=== PATIENT | female | born 1950 | race Caucasian/White ===

== ENCOUNTER 2016-06-22 20:14 | Observation (INO) | payer MEDICARE ==
[~2016-06-22] VITALS: Ht 162.6 cm; Wt 123.0 kg
[~2016-06-22 20:14] MED LIST: FOLI1 PO; GABA300C3 PO; HYDR200T42 PO; LEVO.025 PO; META800 PO; METH2.5 PO; METO25 PO; OMEP20TA39 PO; PERC7.5T13 PO; SERT-129 PO; WARF1TAB PO
[2016-06-22 20:20] VITALS: BP 181/79; PULSE 99; RESP 24; TEMP 98.3; O2SAT 97
[2016-06-22] MEDS ORDERED: LEVO25TA4 PO (20:36)
[2016-06-22] MEDS ORDERED: METH2.5T PO (20:36)
[2016-06-22] MEDS ORDERED: PLAQ200T PO (20:36)
[2016-06-22] MEDS ORDERED: ZOLO100T PO (20:36)
[2016-06-22] MEDS ORDERED: GABA300C5 PO (20:36)
[2016-06-22] MEDS ORDERED: FOLI1TAB4 PO (20:36)
[2016-06-22] MEDS ORDERED: METO50TA PO (20:36)
[2016-06-22] MEDS ORDERED: WARF-22 PO (20:36)
[2016-06-22] MEDS ORDERED: OMEP20TA PO (20:36)
[2016-06-22] MEDS ORDERED: BUME1TAB PO (20:38)
[2016-06-22 20:39] VITALS: RESP 18; O2SAT 98
[2016-06-22] MEDS ORDERED: SODIUM CHLORIDE 0.9% FLUSH 5 ML FLUSH IVF PRN (20:45)
--- NOTE | 2016-06-22 21:11 | PD ---
HPI Chief Complaint: Cardiac Complaint Time Seen by Provider: 20:32 Travel History International Travel<30 days: No Contact w/Intl Traveler<30days: No Traveled to known affect area: No History of Present Illness HPI 66 year-old female presents to the emergency department by EMS transport for complaint of palpitations. Patient has prior history of atrial fibrillation. Patient is recently been under the care of her primary care physician for bronchitis. Patient recently discontinued a four-day course of prednisone approximate 10 days ago. Patient is not on antibiotic and denies fever. Patient has been using albuterol neb treatments prior history of asthma and bronchitis. Patient states that she also has history of DVT for which she is prescribed Coumadin. Patient is been taking her medications as prescribed. Patient reports that yesterday she felt fairly well except congested and then this morning she awakened noticing she had swelling of her feet took a dose of Bumex still didn't feel well all day and then this evening as she was taking out her dog she noticed that she was having a racing heart. Patient attended to check her blood pressure but was unable to do so but when she looked at the blood pressure cuff or heart rate reportedly registered 160. Patient sat down felt improved heart rate decreased to 138 and when she got up again her heart rate reportedly increased to 200. Patient attempted to give her neighbor to bring her in but due to feeling poorly came in by EMS transport. Patient reportedly en route had episode of atrial fibrillation with RVR. Patient presently voices no complaint of palpitations chest pain or shortness of breath. Patient does report that intermittently she's had a funny fluttery sensation in her left neck area. Patient states with her last episode of attempting to stand she felt as if she may pass out. Patient has had no syncope. PFSH Past Medical History Narrative Medical Rheumatoid arthritis sarcoidosis hypothyroidism asthma CHF SVT atrial fibrillation DVT fibromyalgia esophageal spasm; cardiac ablation mediastinoscopy bilateral knee surgery; no tobacco use; nursing notes reviewed Arthritis: Yes (RA) Asthma: Yes Atrial Fibrillation: Yes Depression: Yes Heart Rhythm Problems: Yes (TACHYCARDIA) Cancer: Yes (SKIN) Cardiac Catheterization: Yes Cardiovascular Problems: Yes Congestive Heart Failure: Yes COPD: Yes Deep Vein Thrombosis: Yes (VENA CAVA BIRD'S NEST FILTER) Fibromyalgia: Yes Gastrointestinal Disorders: Yes (ESOPHAGUS SPASMS) GERD: Yes Hypertension: Yes Musculoskeletal: Yes (SPINAL STENOSIS, DDD) Respiratory: Yes Pneumonia: Yes Thyroid Disease: Yes Tetanus Vaccination: > 5 Years Influenza Vaccination: Yes Past Surgical History Cardiac Surgery: Yes (ABLASION) Joint Replacement: Yes (BILATERAL KNEES) Other Surgery: Yes (MEDIA STINASCOPY WITH BIOPSY) Social History Alcohol Use: Yes (OCC) Tobacco Use: No Substance Use: No Allergies-Medications (Allergen,Severity, Reaction): Coded Allergies: Arava (Unverified Allergy, Intermediate, Itching, 06/22/16) Lyrica (Unverified Allergy, Intermediate, Itching, 06/22/16) Remicade (Unverified Allergy, Intermediate, Itching, 06/22/16) Reported Meds & Prescriptions Reported Meds & Active Scripts Active Reported Bumetanide 1 Mg Tab 1 Mg PO DAILY Warfarin 10 Mg Tab 10 Mg PO DAILY Zoloft (Sertraline HCl) 100 Mg Tab 100 Mg PO HS Omeprazole 20 Mg Tab 20 Mg PO DAILY Metoprolol Tartrate 50 Mg Tab 50 Mg PO BID Methotrexate 2.5 Mg Tab 20 Mg PO Q7D Levothyroxine (Levothyroxine Sodium) 25 Mcg Tab 25 Mcg PO DAILY Plaquenil (Hydroxychloroquine Sulfate) 200 Mg Tab 200 Mg PO BID Take with food Gabapentin 300 Mg Cap 300 Mg PO BID Folate (Folic Acid) 1 Mg Tab 1 Mg PO DAILY Review of Systems Except as stated in HPI: all other systems reviewed are Neg General / Constitutional: No: Fever, Chills HENT: No: Congestion Cardiovascular: Positive: Palpitations, Tachycardia, No: Chest Pain or Discomfort, Diaphoresis Respiratory: No: Shortness of Breath Gastrointestinal: No: Nausea, Vomiting, Abdominal Pain Genitourinary: No: Flank Pain Musculoskeletal: No: Myalgias, Arthralgias Skin: No Rash Neurologic: Positive: Weakness, Dizziness, No: Syncope (near syncope), Focal Abnormalities, Coordination Problem Psychiatric: Positive: Anxiety Hematologic/Lymphatic: No: Easy Bruising Physical Exam Narrative GENERAL: Well-developed well-nourished female in acute distress no respiratory distress SKIN: Warm and dry. HEAD: Normocephalic. EYES: No scleral icterus. No injection or drainage. NECK: Supple, trachea midline. No JVD or lymphadenopathy. CARDIOVASCULAR: Regular rate and rhythm without murmurs, gallops, or rubs. RESPIRATORY: Breath sounds equal bilaterally. No accessory muscle use. GASTROINTESTINAL: Abdomen soft, non-tender, nondistended. MUSCULOSKELETAL: No cyanosis, or edema. BACK: Nontender without obvious deformity. No CVA tenderness. Data Data Last Documented VS Vital Signs Date Time Temp Pulse Resp B/P Pulse Ox O2 Delivery O2 Flow Rate FiO2 06/23/16 00:38 79 22 151/78 96 Room Air 06/22/16 20:20 98.3 Orders Electrocardiogram (06/22/16 20:32) Basic Metabolic Panel (Bmp) (06/22/16 20:32) B-Type Natriuretic Peptide (06/22/16 20:32) Ckmb (Isoenzyme) Profile (06/22/16 20:32) Complete Blood Count With Diff (06/22/16 20:32) Magnesium (Mg) (06/22/16 20:32) Prothrombin Time / Inr (Pt) (06/22/16 20:32) Act Partial Throm Time (Ptt) (06/22/16 20:32) Troponin I (06/22/16 20:32) Chest, Single Ap (06/22/16 20:32) Ecg Monitoring (06/22/16 20:32) Bilateral Bp Monitoring (06/22/16 20:32) Iv Access Insert/Monitor (06/22/16 20:32) Oximetry (06/22/16 20:32) Oxygen Administration (06/22/16 20:32) Sodium Chloride 0.9% Flush (Ns Flush) (06/22/16 20:45) CKMB (06/22/16 20:42) CKMB% (06/22/16 20:42) Nitroglycerin 2% Oint (Nitroglycerin 2% (06/22/16 23:30) Vital Signs (Adult) Q4H (06/23/16 00:27) Activity Oob With Assistance (06/23/16 00:27) Program Services Assistant / Telemetry .CONTINUOUS (06/23/16 00:27) Intake + Output MAURA.QSHIFT (06/23/16 00:27) Diet Heart Healthy (06/23/16 Breakfast) Sodium Chloride 0.9% Flush (Ns Flush) (06/23/16 00:30) Sodium Chloride 0.9% Flush (Ns Flush) (06/23/16 09:00) Basic Metabolic Panel (Bmp) (06/24/16 06:00) Complete Blood Count With Diff (06/24/16 06:00) Creatine Kinase (Cpk) (06/23/16 03:00) Creatine Kinase (Cpk) (06/23/16 09:00) Troponin I (06/23/16 03:00) Troponin I (06/23/16 09:00) Electrocardiogram (06/23/16 03:00) Electrocardiogram (06/23/16 09:00) Pt Request For Service (06/23/16 00:27) Enoxaparin Inj (Lovenox Inj) (06/23/16 00:30) Naloxone Inj (Narcan Inj) (06/23/16 00:30) Place In Observation (06/23/16 ) Admit Order (Ed Use Only) (06/23/16 ) ^ Saline Lock (06/23/16 00:46) Resp Oxygen Shaheen C Titrat 1-4 L (06/23/16 ) ^ Notify Dr: Other (06/23/16 00:46) Sodium Chloride 0.9% Flush (Ns Flush) (06/23/16 09:00) Sodium Chloride 0.9% Flush (Ns Flush) (06/23/16 01:00) Labs Laboratory Tests Test 06/22/16 20:42 White Blood Count 6.0 TH/MM3 Red Blood Count 4.42 MIL/MM3 Hemoglobin 13.3 GM/DL Hematocrit 39.3 % Mean Corpuscular Volume 88.8 FL Mean Corpuscular Hemoglobin 30.0 PG Mean Corpuscular Hemoglobin 33.8 % Concent Red Cell Distribution Width 15.1 % Platelet Count 192 TH/MM3 Mean Platelet Volume 9.1 FL Neutrophils (%) (Auto) 72.7 % Lymphocytes (%) (Auto) 9.0 % Monocytes (%) (Auto) 14.5 % Eosinophils (%) (Auto) 2.5 % Basophils (%) (Auto) 1.3 % Neutrophils # (Auto) 4.3 TH/MM3 Lymphocytes # (Auto) 0.5 TH/MM3 Monocytes # (Auto) 0.9 TH/MM3 Eosinophils # (Auto) 0.2 TH/MM3 Basophils # (Auto) 0.1 TH/MM3 CBC Comment DIFF FINAL Differential Comment Prothrombin Time 22.1 SEC Prothromb Time International 1.9 RATIO Ratio Activated Partial 31.8 SEC Thromboplast Time Sodium Level 140 MEQ/L Potassium Level 4.7 MEQ/L Chloride Level 103 MEQ/L Carbon Dioxide Level 30.2 MEQ/L Anion Gap 7 MEQ/L Blood Urea Nitrogen 13 MG/DL Creatinine 1.07 MG/DL Estimat Glomerular Filtration 52 ML/MIN Rate Random Glucose 95 MG/DL Calcium Level 8.6 MG/DL Magnesium Level 2.0 MG/DL Total Creatine Kinase 194 U/L Creatine Kinase MB 1.2 NG/ML Creatine Kinase MB % 0.6 % Troponin I LESS THAN 0.02 NG/ML B-Type Natriuretic Peptide 30 PG/ML MDM Medical Decision Making Medical Screen Exam Complete: Yes Emergency Medical Condition: Yes Medical Record Reviewed: Yes Interpretation(s) EKG: Normal sinus rhythm rate [address] elevation or injury pattern change no ectopy normal axis and intervals Last Impressions Chest X-Ray 06/22/162031 Signed Impressions: Service Date/Time: Wednesday, June 22, 2016 20:34 - CONCLUSION: Faint opacity in both lungs especially on the right. Pneumonitis versus early congestion should be considered. Mild cardiomegaly Temo Burrows MD CBC & BMP Diagram 06/22/16 20:42 Troponin I less than 0.02, not elevated Differential Diagnosis Arrhythmia, A. fib with RVR, electrolyte disturbance, ACS, myocardial infarction , anemia, Coumadin coagulopathy Narrative Course Placed on dye line operator IV access obtained IV fluids administered specimens collected and sent for resulting EKG reveals patient to be in sinus rhythm without ectopy or tachycardia Lab values pending Patient resting comfortably voicing no concerns or complaints Labs resulted; grossly within normal range; patient remains hypertensive Nitropaste 1 inch was applied to the chest wall with good blood pressure control Physician Communication Physician Communication DISCUSSED WITH dR Espinal --OBS Diagnosis Primary Impression: Rapid palpitations Admitting Information Admitting Physician Requests: Observation Brianna Crawley MD Jun 22, 2016 21:11
[2016-06-22 21:13] LABS: AUTOMATED NEUTROPHIL # 4.3 TH/MM3 (1.8-7.7); BASOPHIL # 0.1 TH/MM3 (0-0.2); BASOPHIL % 1.3 % (0.0-2.0); EOSINOPHIL # 0.2 TH/MM3 (0-0.4); EOSINOPHIL % 2.5 % (0.0-4.0); HEMATOCRIT 39.3 % (35.0-46.0); HEMO FLAGS DIFF FINAL; LYMPHOCYTE # 0.5 TH/MM3 (1.0-4.8); MEAN CELL VOLUME 88.8 FL (80.0-100.0); MEAN CORPUSCULAR HGB CONC 33.8 % (32.0-36.0); MONO % 14.5 % (0.0-8.0); NEUT % 72.7 % (16.0-70.0); PLATELET COUNT 192 TH/MM3 (150-450); RED BLOOD COUNT 4.42 MIL/MM3 (4.00-5.30); RED CELL DISTRIBUTION WIDTH 15.1 % (11.6-17.2)
[2016-06-22 21:28] LABS: APTT (PATIENT) 31.8 SEC (24.3-30.1); INTERNATIONAL NORMALIZED RATIO 1.9 RATIO; PROTHROMBIN TIME - PATIENT 22.1 SEC (9.8-11.6)
[2016-06-22 22:17] LABS: ANION GAP 7 MEQ/L (5-15); BICARBONATE 30.2 MEQ/L (21.0-32.0); BLOOD UREA NITROGEN 13 MG/DL (7-18); CHLORIDE 103 MEQ/L (98-107); CREATINE KINASE 194 U/L (26-192); GLOMERULAR FILTRATION RATE 52 ML/MIN (>89); SODIUM (NA) 140 MEQ/L (136-145)
[2016-06-22 22:22] VITALS: BP 198/91; PULSE 82; RESP 20; O2SAT 94
[2016-06-22 22:26] VITALS: BP_SYST 206; BP_DIAS 102; BP_DIAS 109; PULSE 75; RESP 22; O2SAT 96
[2016-06-22 22:39] LABS: POTASSIUM 4.7 MEQ/L (3.5-5.1)
--- NOTE | 2016-06-22 22:44 | RADRPT ---
EXAM DATE/TIME: 06/22/2016 20:34 [facility] COMPARISON: No previous studies available for comparison. INDICATIONS : Chest pain and cough. MEDICAL HISTORY : None. SURGICAL HISTORY : IVC filter. ENCOUNTER: Initial ACUITY: 3 days PAIN SCORE: 2/10 LOCATION: Left chest FINDINGS: The heart is mildly enlarged. There is faint opacity throughout both lungs especially the right lung. Central vascular engorgement is noted. Osseous structures are intact CONCLUSION: Faint opacity in both lungs especially on the right. Pneumonitis versus early congestion should be co nsidered. Mild cardiomegaly Temo Burrows MD on June 22, 2016 at 22:41 Board Certified Radiologist. This report was verified electronically.
[2016-06-22 23:30] LABS: CKMB 1.2 NG/ML (0.5-3.6)
[2016-06-22] MEDS ORDERED: NITROGLYCERIN 2% OINT 1 GM PACKET TOPICAL ONE (23:30)
[2016-06-22 23:57] VITALS: BP_SYST 162; BP_SYST 215; BP_DIAS 151; BP_DIAS 72; PULSE 71; RESP 16; O2SAT 96
[2016-06-23] VITALS (9 sets, daily range): BP systolic 137–180; BP diastolic 68–86; PULSE 53–97; RESP 16–22; TEMP 97.5–98.1; O2SAT 95–97
[2016-06-23] MEDS ORDERED: ENOXAPARIN SODIUM 40 MG/0.4 ML SYRINGE SQ SCH (00:30)
[2016-06-23] MEDS ORDERED: NALOXONE HCL 0.4 MG/ML AMP IV PRN (00:30)
[2016-06-23] MEDS ORDERED: SODIUM CHLORIDE 0.9% FLUSH 5 ML FLUSH FLUSH PRN (00:30)
[2016-06-23] MEDS ORDERED: SODIUM CHLORIDE 0.9% FLUSH 5 ML FLUSH IVF PRN (01:00)
[2016-06-23 03:59] LABS: CREATINE KINASE 99 U/L (26-192)
[2016-06-23] MEDS ORDERED: LEVOFLOXACIN 750 MG PREMIX INJ 150 ML IV SCH (04:45)
--- NOTE | 2016-06-23 04:47 | HHI.HP ---
[facility] Service [facility] Primary [facility] Physician Adiel Cleary MD Admission Diagnosis palpitations Diagnoses: Chief Complaint: palpitations Travel History International Travel<30 Days: No Contact w/Intl Traveler <30 Da: No Traveled to Known Affected Are: No History of Present Illness History taken from patient and ED physician Patient states she was taking dog out and she felt uneasy, dizzy, like she was going to pass out. She went back inside and sat down she was having hot flashes and she felt flushed. She states she could feel her heart racing, and when she took her pulse it was 200. She states she does have a history of A. fib when she was in her 20s but has not had a problem since. When [facility] arrived she was found to be in A. fib. For the last 3 weeks patient states she has had a congested cough, and just recently finished taking nebulizers and prednisone 4 days ago for bronchitis from her PCP. She states her cough has not gotten any better. She did notice her feet were swelling today and she also took a Bumex with no relief. She denies any chest pain, shortness of breath, fever or chills. 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 Kaur Review of Systems Constitutional: DENIES: Fever, Chills Respiratory: COMPLAINS OF: Cough, Sputum production, DENIES: Shortness of breath Cardiovascular: COMPLAINS OF: Palpitations, Lower Extremity Edema, DENIES: Chest pain Gastrointestinal: DENIES: Constipation, Diarrhea, Nausea, Vomiting Genitourinary: DENIES: Hematuria, Dysuria Musculoskeletal: DENIES: Back pain, Neck pain Integumentary: DENIES: Rash Hematologic/lymphatic: DENIES: Lymphadenopathy Immunologic/allergic: DENIES: Urticaria Neurologic: DENIES: Headache Past Family Social History Past Medical History CHF AFIB in her 20s RA Sarcoidosis Asthma GERD HTN Spinal stenosis Skin CA-SCC, BCC Bilateral DVTs Past Surgical History Ablation Bilateral TKR Bilateral feet surgery Cataract surgery Reported Medications Reported Meds & Active Scripts Active Reported Bumetanide 1 Mg Tab 1 Mg PO DAILY Warfarin 10 Mg Tab 10 Mg PO DAILY Zoloft (Sertraline HCl) 100 Mg Tab 100 Mg PO HS Omeprazole 20 Mg Tab 20 Mg PO DAILY Metoprolol Tartrate 50 Mg Tab 50 Mg PO BID Methotrexate 2.5 Mg Tab 20 Mg PO Q7D Levothyroxine (Levothyroxine Sodium) 25 Mcg Tab 25 Mcg PO DAILY Plaquenil (Hydroxychloroquine Sulfate) 200 Mg Tab 200 Mg PO BID Take with food Gabapentin 300 Mg Cap 300 Mg PO BID Folate (Folic Acid) 1 Mg Tab 1 Mg PO DAILY Allergies: Coded Allergies: Arava (Unverified Allergy, Intermediate, Itching, 06/22/16) Lyrica (Unverified Allergy, Intermediate, Itching, 06/22/16) Remicade (Unverified Allergy, Intermediate, Itching, 06/22/16) Active Ordered Medications Current Medications Medications (Trade) Dose Ordered Sig/Yovana Route Start Time Stop Time Status Last Admin (NS Flush) 2 ml UNSCH PRN FLUSH 06/23/16 00:30 (NS Flush) 2 ml BID FLUSH 06/23/16 09:00 (Lovenox Inj) 40 mg Q24H SQ 06/23/16 00:30 06/23/16 01:09 (Narcan Inj) 0.4 mg UNSCH PRN IV 06/23/16 00:30 Family History Family history is significant for heart disease and heart attacks Social History Tobacco use: quit 35 years ago Alcohol disease: occ Physical Exam Vital Signs Vital Signs Date Time Temp Pulse Resp B/P Pulse Ox O2 Delivery O2 Flow Rate FiO2 06/23/16 00:38 79 22 151/78 96 Room Air 06/22/16 23:57 71 16 162/72 96 06/22/16 22:26 75 22 206/102 96 Room Air 06/22/16 22:22 82 20 198/91 94 Room Air 06/22/16 20:39 18 98 Room Air 06/22/16 20:20 98.3 99 24 181/79 97 Physical Exam GENERAL: This is a well-nourished, well-developed patient, in no apparent distress. SKIN: No rashes, ecchymoses or lesions. Cool and dry. HEAD: Atraumatic. Normocephalic. EYES: Pupils equal round and reactive. ENT: Nose without bleeding, purulent drainage or septal hematoma. Uvula midline. Airway patent. NECK: Trachea midline. No JVD or lymphadenopathy. Supple, nontender, no meningeal signs. CARDIOVASCULAR: Regular rate and rhythm without murmurs, gallops, or rubs. RESPIRATORY: Diminished breath sounds. No wheezes, rales, or rhonchi. GASTROINTESTINAL: Abdomen soft, non-tender, nondistended. No guarding. MUSCULOSKELETAL: Trace edema in bilateral lower extremities No joint tenderness , effusion, or edema noted. No calf tenderness. NEUROLOGICAL: Awake and alert. Motor and sensory grossly within normal limits. Normal speech. Laboratory Laboratory Tests Test 06/22/16 06/23/16 20:42 03:00 White Blood Count 6.0 Red Blood Count 4.42 Hemoglobin 13.3 Hematocrit 39.3 Mean Corpuscular Volume 88.8 Mean Corpuscular Hemoglobin 30.0 Mean Corpuscular Hemoglobin 33.8 Concent Red Cell Distribution Width 15.1 Platelet Count 192 Mean Platelet Volume 9.1 Neutrophils (%) (Auto) 72.7 Lymphocytes (%) (Auto) 9.0 Monocytes (%) (Auto) 14.5 Eosinophils (%) (Auto) 2.5 Basophils (%) (Auto) 1.3 Neutrophils # (Auto) 4.3 Lymphocytes # (Auto) 0.5 Monocytes # (Auto) 0.9 Eosinophils # (Auto) 0.2 Basophils # (Auto) 0.1 CBC Comment DIFF FINAL Differential Comment Prothrombin Time 22.1 Prothromb Time International 1.9 Ratio Activated Partial 31.8 Thromboplast Time Sodium Level 140 Potassium Level 4.7 Chloride Level 103 Carbon Dioxide Level 30.2 Anion Gap 7 Blood Urea Nitrogen 13 Creatinine 1.07 Estimat Glomerular Filtration 52 Rate Random Glucose 95 Calcium Level 8.6 Magnesium Level 2.0 Total Creatine Kinase 194 99 Creatine Kinase MB 1.2 Creatine Kinase MB % 0.6 Troponin I LESS THAN 0.02 LESS THAN 0.02 B-Type Natriuretic Peptide 30 Result Diagram: 06/22/16204106/22/162041 Imaging Last Impressions Chest X-Ray 06/22/162031 Signed Impressions: Service Date/Time: Wednesday, June 22, 2016 20:34 - CONCLUSION: Faint opacity in both lungs especially on the right. Pneumonitis versus early congestion should be considered. Mild cardiomegaly Temo Burrows MD Assessment and Plan Problem List: (1) Rapid palpitations ICD Code: R00.2 Status: Acute (2) Pneumonitis ICD Code: J18.9 Status: Acute (3) HTN (hypertension) ICD Code: I10 Status: Acute (4) CHF (congestive heart failure) ICD Code: I50.9 Status: Acute Assessment and Plan 66 y/o female with a history of afib, RA, chf, asthma and hypothyroidism presented with: Rapid palpitations, possible A. fib Labs: Troponin negative 2 EKG shows sinus rhythm -Serial troponin and ekg -Nitropaste given in ED -Monitor telemetry -Consult cardiology -Reorder home medications Coumadin Pneumonitis, cough and congestion > 3 weeks Images reviewed: Chest x-ray shows bilateral opacity in lung bases, suggestive of pneumonitis. -Levofloxacin by mouth daily HTN, chronic, increased upon arrival -Monitor vitals -Reorder home medications metoprolol CHF, chronic, patient does not know EF -Reorder home medications Bumex -Monitor for fluid overload DVT: coumadin Written by Idalia JEWELL, acting as scribe for Dr. Rashid on 06/23/16 at 0425. The documentation accurately reflects the work performed [id number] and decisions made by me and the physician Dr Rashid on 06/23/16. The documentation accurately reflects the work performed [id number] by me on at 0425 Discussed Condition With Patient and ED physician Idalia Weinberg Jun 23, 2016 04:47 Nazario Rashid MD Jun 23, 2016 08:16
[2016-06-23] MEDS ORDERED: LEVOFLOXACIN 750 MG TAB PO SCH (05:00)
[2016-06-23] MEDS: LEVOTHYROXINE SODIUM 25 MCG TAB PO SCH (06:11)
[2016-06-23] MEDS: ACETAMINOPHEN 325 MG TAB PO PRN ×2 (06:12→16:00)
[2016-06-23] MEDS: FOLIC ACID 1 MG TAB PO SCH (09:00)
[2016-06-23] MEDS: SODIUM CHLORIDE 0.9% FLUSH 5 ML FLUSH FLUSH SCH ×2 (09:00→23:08)
[2016-06-23] MEDS ORDERED: SODIUM CHLORIDE 0.9% FLUSH 5 ML FLUSH IVF SCH (09:00)
[2016-06-23] MEDS: METOPROLOL TARTRATE 50 MG TAB PO SCH ×2 (09:50→23:09)
[2016-06-23] MEDS: PANTOPRAZOLE SOD 20 MG DELAYED RELEASE TAB PO SCH (09:50)
[2016-06-23] MEDS: GABAPENTIN 300 MG CAP PO SCH ×2 (09:50→23:09)
[2016-06-23] MEDS: HYDROXYCHLOROQUINE SULFATE 200 MG TAB PO SCH ×2 (10:23→23:09)
[2016-06-23] MEDS: BUMETANIDE 1 MG TAB PO SCH (10:23)
[2016-06-23] MEDS: cefTRIAXone INJ 1,000 MG in SODIUM CHLORIDE 0.9% INJ 100 ML IV SCH (10:47)
[2016-06-23 11:49] LABS: CREATINE KINASE 112 U/L (26-192)
--- NOTE | 2016-06-23 12:07 | MB ---
cc: JHONNY NICKERSON M.D. DATE OF CONSULTATION 06/23/2016 REASON FOR THE CONSULTATION History of atrial fibrillation, rapid palpitations. HISTORY OF THE PRESENT ILLNESS The patient is a 66-year-old white female with a history of multiple medical problems including rheumatoid arthritis, sarcoidosis, asthma, hypertension, remote history of deep venous thrombosis, paroxysmal atrial fibrillation, who presented to the hospital mainly with complaints of near-syncope and rapid palpitations. For most of the day yesterday she felt "just not right," often lightheaded. In the evening she began to experience rapid palpitations with heart rates she believes as high as 200 associated with lightheadedness and near-syncope. She denies chest pain, shortness of breath, syncope. Over the last three weeks she has had cold-like symptoms with nonproductive cough and generalized malaise. The patient has noted mild pedal edema recently. She denies paroxysmal nocturnal dyspnea, orthopnea, fevers, hemoptysis. PAST MEDICAL HISTORY 1. History of possible congestive heart failure 2005, apparently with unrevealing cardiac workup that time at that time including normal cardiac catheterization. 2. History of paroxysmal atrial fibrillation the patient states dating back into her 20s. She chronically has been on warfarin. 3. Rheumatoid arthritis. 4. Sarcoidosis. 5. Asthma. 6. Hypertension. 7. Gastroesophageal reflux disease. 8. History of bilateral deep venous thromboses in the with history of vena cava filter placement in 1998. PAST SURGICAL HISTORY 1. Bilateral total knee replacements. 2. Cataract surgery. CARDIAC MEDICATIONS AT HOME 1. Bumex 1 mg daily. 2. Warfarin 10 mg daily. 3. Metoprolol 50 mg b.i.d. ALLERGIES LYRICA. REMICADE. ARAVA. FAMILY HISTORY There is an extensive family history of cardiac disease. Both her brother and sister have sustained myocardial infarctions in their 50s and 60s. SOCIAL HISTORY The patient quit smoking 35 years ago. There is no history of alcohol abuse. REVIEW OF SYSTEMS As in the History Of Present Illness, otherwise negative or noncontributory. She also denies headache, visual changes, unilateral weakness or numbness, abdominal pain, melena, dyspepsia, bright red blood per rectum. PHYSICAL EXAMINATION VITAL SIGNS: Her blood pressure is 146/79 with a pulse of 68, respirations 16. GENERAL: She is a well-developed, well-nourished white female in no acute distress. HEENT AND NECK EXAMINATION: Jugular venous pressure is normal. Carotid pulses are 2+ bilaterally and without bruits. CHEST: Examination of the chest reveals clear lung thompson. CARDIAC EXAMINATION: She has a regular rhythm and rate without S3, S4 or murmur. ABDOMEN: On abdominal examination she has a soft, nontender abdomen. Bowel sounds are present. There is no definite hepatosplenomegaly. EXTREMITIES: Examination of extremities reveals no clubbing, cyanosis or edema. LABORATORY DATA Normal CBC, potassium 4.7, BUN 13, creatinine 1.07, CK 194. Troponin less than 0.02. INR 1.9. CHEST X-RAY "Faint opacity in both lungs, especially on the right". EKG Normal sinus rhythm, normal EKG. IMPRESSION Palpitations, near-syncope in this 66-year-old white female with a history of a paroxysmal atrial fibrillation, hypertension, sarcoidosis, rheumatoid arthritis, remote history of deep venous thrombosis status post inferior vena cava filter placement, possible history of congestive heart failure 10 years ago. The patient has been in sinus rhythm since admission. According to the patient, there was some question whether she was in atrial fibrillation in the ambulance en route to the hospital. However, I cannot find any ambulance rhythm strips. All the rhythm strips here in the hospital shows sinus rhythm. She has chronically been on warfarin with mostly therapeutic pro-times according to the patient. There is no evidence for acute coronary syndrome. RECOMMENDATIONS 1. As there is no definite documentation on monitoring strips of atrial fibrillation, I would not subject her to antiarrhythmic drug therapy at this time. I would like her to wear a 3-week monitor as an outpatient. My office will set this up. 2. She is cleared for discharge from a cardiac standpoint today. MD JEROME Gama/TYLER /9:39 AM /11:42 AM MTDD
--- NOTE | 2016-06-23 13:54 | HHI.PR ---
Subjective Remarks Follow-up for palpitations, possible A. fib, and pneumonitis. Patient reports no further episodes of palpitations/chest pains today. She does still have a cough, feels her chest is congested, with mild associated shortness of breath. Denies fevers or chills. Denies lower extremity edema. Denies any other medical complaints at this time. Objective Vitals Vital Signs Date Time Temp Pulse Resp B/P Pulse Ox O2 Delivery O2 Flow Rate FiO2 06/23/16 12:41 Nasal Cannula 2 06/23/16 12:29 97.9 56 16 180/83 95 06/23/16 11:44 59 18 179/82 97 Nasal Cannula 2 06/23/16 11:12 53 18 178/79 96 Nasal Cannula 2 06/23/16 07:44 71 18 146/79 96 Nasal Cannula 2 166/76 06/23/16 07:44 68 99 Nasal Cannula 2 06/23/16 07:44 67 16 146/79 97 Nasal Cannula 2 06/23/16 07:44 97 2 06/23/16 07:44 97 16 146/79 06/23/16 06:12 84 16 149/68 96 Room Air 06/23/16 00:38 79 22 151/78 96 Room Air 06/22/16 23:57 71 16 162/72 96 06/22/16 22:26 75 22 206/102 96 Room Air 06/22/16 22:22 82 20 198/91 94 Room Air 06/22/16 20:39 18 98 Room Air 06/22/16 20:20 98.3 99 24 181/79 97 Result Diagram: 06/22/16204106/22/162041 Imaging Last Impressions Chest X-Ray 06/22/162031 Signed Impressions: Service Date/Time: Wednesday, June 22, 2016 20:34 - CONCLUSION: Faint opacity in both lungs especially on the right. Pneumonitis versus early congestion should be considered. Mild cardiomegaly Temo Burrows MD Objective Remarks GENERAL: Well-nourished, well-developed pleasant obese female patient in [facility]. SKIN: Warm and dry. No rash. HEAD: Normocephalic. Atraumatic. EYES: Pupils equal and round. No scleral icterus. No injection or drainage. ENT: No nasal bleeding or discharge. Mucous membranes pink and moist. NECK: Supple. Trachea midline. CARDIOVASCULAR: Regular rate and rhythm. S1, S2 noted. No murmur appreciated. RESPIRATORY: No accessory muscle use. Mild expiratory scattered rhonchi bilaterally. Breath sounds equal bilaterally. GASTROINTESTINAL: Abdomen soft, non-tender, nondistended. Normoactive bowel sounds x4. MUSCULOSKELETAL: No obvious deformities. Extremities without clubbing, cyanosis , or edema. NEUROLOGICAL: Awake and alert. No obvious cranial nerve deficits. Motor grossly within normal limits. Normal speech. PSYCHIATRIC: Appropriate mood and affect; insight and judgment normal. Medications and IVs Current Medications Medications (Trade) Dose Ordered Sig/Yovana Route Start Time Stop Time Status Last Admin (NS Flush) 2 ml UNSCH PRN FLUSH 06/23/16 00:30 (NS Flush) 2 ml BID FLUSH 06/23/16 09:00 06/23/16 09:00 (Narcan Inj) 0.4 mg UNSCH PRN IV 06/23/16 00:30 (Tylenol) 650 mg Q4H PRN PO 06/23/16 05:00 06/23/16 06:12 (Bumetanide) 1 mg DAILY PO 06/23/16 09:00 06/23/16 10:23 (Folate) 1 mg DAILY PO 06/23/16 09:00 06/23/16 09:00 (Neurontin) 300 mg BID PO 06/23/16 09:00 06/23/16 09:50 (Plaquenil) 200 mg BID PO 06/23/16 09:00 06/23/16 10:23 (Synthroid) 25 mcg DAILY@06 PO 06/23/16 06:00 06/23/16 06:11 (Lopressor) 50 mg BID PO 06/23/16 09:00 06/23/16 09:50 (Protonix) 20 mg DAILY PO 06/23/16 09:00 06/23/16 09:50 (Zoloft) 100 mg HS PO 06/23/16 21:00 Warfarin Sodium 10 mg 10 mg DAILY@16 PO 06/23/16 16:00 (Rocephin Inj/NS Inj) 100 ml @ 200 mls/hr Q24H IV 06/23/16 11:00 06/23/16 10:47 A/P Problem List: (1) Rapid palpitations ICD Code: R00.2 Status: Acute (2) Pneumonitis ICD Code: J18.9 Status: Acute (3) HTN (hypertension) ICD Code: I10 Status: Acute (4) CHF (congestive heart failure) ICD Code: I50.9 Status: Acute Assessment and Plan 66 y/o female with a history of afib, RA, chf, asthma and hypothyroidism presented with: Rapid palpitations, suspected Atrial fibrillation with RVR, possible SVT? (no telemetry strips available from [facility]). -ACS ruled out with negative serial cardiac enzymes x3 and EKG without acute ST changes, reviewed by me. -S/p Nitropaste given in ED -Monitor on telemetry -Consult cardiology, seen by Dr. Kaur, does not recommend any further antiarrhythmics at this time, plan for outpatient 3 week event monitor -Continue home Coumadin Pneumonitis, cough and congestion > 3 weeks. CXR images reviewed by me, shows bilateral opacity in lung bases, suggestive of pneumonitis. -Given Levaquin, however will continue with IV Rocephin for now HTN, chronic, increased upon arrival -Monitor vitals -Reorder home medications metoprolol CHF, chronic, patient does not know EF -Reorder home medications Bumex -Monitor for fluid overload DVT: Coumadin Discussed with Dr. Ware. Zuleyma Roa PA-C Jun 23, 2016 1:54 pm
[2016-06-23] MEDS ORDERED: RESP: ALBUTEROL 2.5 MG/IPRATROPIUM 0.5 MG NEB (PRN) NEB (16:00)
[2016-06-23] MEDS ORDERED: WARFARIN SOD 10 MG TAB PO SCH (16:00)
[2016-06-23] MEDS ORDERED: guaiFENesin/DEXTROMETHORPHAN 200 MG/20 MG/10 ML CUP PO PRN (17:30)
[2016-06-23] MEDS: RESP: ALBUTEROL 2.5 MG/IPRATROPIUM 0.5 MG NEB (SCH) NEB (19:20)
[2016-06-23] MEDS ORDERED: SERTRALINE HCL 100 MG TAB PO SCH (21:00)
--- NOTE | 2016-06-23 23:43 | EKG ---
Date Performed: 06/23/2016 Time Performed: 03:01:02 PTAGE: 66 years EKG: Sinus rhythm NONSPECIFIC T-WAVE ABNORMALITY BORDERLINE ECG PREVIOUS TRACING : 06/22/2016 20.22 Compared to prior tracing no significant change DOCTOR: Juarez Alvarenga Interpretating Date/Time 06/23/2016 23:43:08
--- NOTE | 2016-06-23 23:51 | EKG ---
Date Performed: 06/22/2016 Time Performed: 20:22:54 PTAGE: 66 years EKG: Sinus rhythm NORMAL ECG NO PREVIOUS TRACING DOCTOR: Juarez Alvarenga Interpretating Date/Time 06/23/2016 23:50:09
[2016-06-24 00:17] VITALS: BP 159/84; PULSE 68; RESP 18; TEMP 96.5; O2SAT 93
[2016-06-24 04:21] VITALS: BP 159/77; PULSE 66; RESP 20; O2SAT 96
[2016-06-24] MEDS: LEVOTHYROXINE SODIUM 25 MCG TAB PO SCH (06:19)
[2016-06-24 07:12] VITALS: PULSE 67
[2016-06-24 07:30] VITALS: BP 164/82; PULSE 64; RESP 16; TEMP 98.1; O2SAT 95
[2016-06-24 07:41] LABS: AUTOMATED NEUTROPHIL # 3.1 TH/MM3 (1.8-7.7); BASOPHIL # 0.1 TH/MM3 (0-0.2); BASOPHIL % 1.1 % (0.0-2.0); EOSINOPHIL # 0.2 TH/MM3 (0-0.4); EOSINOPHIL % 4.8 % (0.0-4.0); HEMATOCRIT 37.9 % (35.0-46.0); HEMO FLAGS DIFF FINAL; LYMPH % 14.7 % (9.0-44.0); LYMPHOCYTE # 0.7 TH/MM3 (1.0-4.8); MEAN CELL VOLUME 89.6 FL (80.0-100.0); MEAN CORPUSCULAR HEMOGLOBIN 29.8 PG (27.0-34.0); MEAN CORPUSCULAR HGB CONC 33.2 % (32.0-36.0); MONO % 17.7 % (0.0-8.0); NEUT % 61.7 % (16.0-70.0); PLATELET COUNT 160 TH/MM3 (150-450); RED BLOOD COUNT 4.23 MIL/MM3 (4.00-5.30); RED CELL DISTRIBUTION WIDTH 15.2 % (11.6-17.2)
[2016-06-24] MEDS: SODIUM CHLORIDE 0.9% FLUSH 5 ML FLUSH FLUSH SCH (07:47)
[2016-06-24] MEDS: BUMETANIDE 1 MG TAB PO SCH (07:48)
[2016-06-24] MEDS: GABAPENTIN 300 MG CAP PO SCH (07:48)
[2016-06-24] MEDS: METOPROLOL TARTRATE 50 MG TAB PO SCH (07:48)
[2016-06-24] MEDS: FOLIC ACID 1 MG TAB PO SCH (07:48)
[2016-06-24] MEDS: PANTOPRAZOLE SOD 20 MG DELAYED RELEASE TAB PO SCH (07:49)
[2016-06-24] MEDS: HYDROXYCHLOROQUINE SULFATE 200 MG TAB PO SCH (07:49)
[2016-06-24] MEDS: RESP: ALBUTEROL 2.5 MG/IPRATROPIUM 0.5 MG NEB (SCH) NEB ×2 (07:59→13:16)
[2016-06-24 08:01] VITALS: O2SAT 95
[2016-06-24 08:10] LABS: BICARBONATE 29.2 MEQ/L (21.0-32.0); POTASSIUM 3.7 MEQ/L (3.5-5.1)
--- NOTE | 2016-06-24 09:16 | PD.CARD.PN ---
Subjective Subjective Remarks Nonproductive cough persists. No dyspnea this morning. Fleeting left upper CP yesterday o/w no CP. No dizziness, near syncope. Slept very little. Objective Medications Item Value Date Time Warfarin Sodium 10 mg 06/23/16 1600 (Coumadin) DAILY@16/PO 06/23/16 1600 Bumetanide 1 mg 06/23/16 0900 (Bumetanide) DAILY/PO 06/24/16 0748 Metoprolol 50 mg 06/23/16 0900 Tartrate BID/PO 06/24/16 0748 (Lopressor) Vital Signs / I&O Vital Signs Date Time Temp Pulse Resp B/P Pulse Ox O2 Delivery O2 Flow Rate FiO2 06/24/16 08:01 95 21 06/24/16 07:30 98.1 64 16 164/82 95 06/24/16 04:21 66 20 159/77 96 06/24/16 00:17 96.5 68 18 159/84 93 06/23/16 19:53 97.5 72 20 137/68 97 06/23/16 15:54 98.1 67 16 160/86 95 06/23/16 14:00 63 06/23/16 12:41 Nasal Cannula 2 06/23/16 12:29 97.9 56 16 180/83 95 06/23/16 11:44 59 18 179/82 97 Nasal Cannula 2 06/23/16 11:12 53 18 178/79 96 Nasal Cannula 2 I/O 06/23/16 06/23/16 06/23/16 06/24/16 06/24/16 06/24/16 07:00 15:00 23:00 07:00 15:00 23:00 Intake Total 240 ml Balance 240 ml Intake Oral 240 ml # Voids 1 Physical Exam GENERAL: Well developed, well nourished. No acute distress. HEENT: Jugular venous pressure is normal. CHEST: Lungs clear to auscultation bilaterally. Unlabored respiratory effort. CARDIAC: Regular rate and rhythm without S3, S4, or murmur. ABDOMEN: Soft, nontender, no hepatosplenomegaly. Bowel sounds present. EXTREMITIES: No clubbing, cyanosis, or edema. Laboratory Laboratory Tests Test 06/23/16 06/24/16 10:34 07:23 Total Creatine Kinase 112 U/L Troponin I LESS THAN 0.02 NG/ML White Blood Count 5.0 TH/MM3 Red Blood Count 4.23 MIL/MM3 Hemoglobin 12.6 GM/DL Hematocrit 37.9 % Mean Corpuscular Volume 89.6 FL Mean Corpuscular Hemoglobin 29.8 PG Mean Corpuscular Hemoglobin 33.2 % Concent Red Cell Distribution Width 15.2 % Platelet Count 160 TH/MM3 Mean Platelet Volume 8.1 FL Neutrophils (%) (Auto) 61.7 % Lymphocytes (%) (Auto) 14.7 % Monocytes (%) (Auto) 17.7 % Eosinophils (%) (Auto) 4.8 % Basophils (%) (Auto) 1.1 % Neutrophils # (Auto) 3.1 TH/MM3 Lymphocytes # (Auto) 0.7 TH/MM3 Monocytes # (Auto) 0.9 TH/MM3 Eosinophils # (Auto) 0.2 TH/MM3 Basophils # (Auto) 0.1 TH/MM3 CBC Comment DIFF FINAL Differential Comment Sodium Level 139 MEQ/L Potassium Level 3.7 MEQ/L Chloride Level 103 MEQ/L Carbon Dioxide Level 29.2 MEQ/L Anion Gap 7 MEQ/L Blood Urea Nitrogen 9 MG/DL Creatinine 0.62 MG/DL Estimat Glomerular Filtration 97 ML/MIN Rate Random Glucose 96 MG/DL Calcium Level 8.5 MG/DL Assessment and Plan Problem List: (1) Paroxysmal atrial fibrillation Assessment and Plan: Two brief episodes of what appear to be atrial fib last night. In NSR this morning except one brief adalid of atrial tachycardia. Discussed treatment options at length. She declines ablation at this time. I recommended Amiodarone, but she would need to stay in the hospital at least 2 more days, and she declines this option. REC discharge today on metoprolol, warfarin; 3 week monitor still to be done to assess atrial fib burden will re-discuss treatment options with patient on outpatient f/u (2) HTN (hypertension) Assessment and Plan: Suboptimal BP's. Patient also notes elevated home BP's for past 3 months. Rec add amlodipine 5 mg qd, f/u with her PCP. Code Status full code Discussed Condition With patient Problem Qualifiers (1) HTN (hypertension): Qualified Code: I10 - Essential hypertension Ronny Kaur MD Jun 24, 2016 09:16
[2016-06-24] MEDS ORDERED: amLODIPine BESYLATE 5 MG TAB PO SCH (09:30)
[2016-06-24] MEDS ORDERED: guaiFENesin/CODEINE SYRUP 200 MG/20 MG/10 ML CUP PO ONE (10:15)
--- NOTE | 2016-06-24 10:22 | HHI.PR ---
Subjective Remarks Follow-up for atrial fibrillation, pneumonitis. Patient reports continued dry hacking nonproductive cough overnight. She states the Robitussin doesn't help, she used to take "a liquid cough medicine with pain med" in the past which has worked for her, plan to try Robitussin with Codeine. Denies fevers or chills. Denies shortness of breath or wheezing. She wants to go home. Upon review of telemetry, it appears patient had two brief episodes of atrial fibrillation last night, now back in normal sinus rhythm. The patient denies any chest pains. She has no other medical complaints at this time. Objective Vitals Vital Signs Date Time Temp Pulse Resp B/P Pulse Ox O2 Delivery O2 Flow Rate FiO2 06/24/16 08:01 95 21 06/24/16 07:30 98.1 64 16 164/82 95 06/24/16 04:21 66 20 159/77 96 06/24/16 00:17 96.5 68 18 159/84 93 06/23/16 19:53 97.5 72 20 137/68 97 06/23/16 15:54 98.1 67 16 160/86 95 06/23/16 14:00 63 06/23/16 12:41 Nasal Cannula 2 06/23/16 12:29 97.9 56 16 180/83 95 06/23/16 11:44 59 18 179/82 97 Nasal Cannula 2 06/23/16 11:12 53 18 178/79 96 Nasal Cannula 2 I/O 06/23/16 06/23/16 06/23/16 06/24/16 06/24/16 06/24/16 07:00 15:00 23:00 07:00 15:00 23:00 Intake Total 240 ml Balance 240 ml Intake Oral 240 ml # Voids 1 Result Diagram: 06/24/1672206/24/16722 Imaging Last Impressions Chest X-Ray 06/22/162031 Signed Impressions: Service Date/Time: Wednesday, June 22, 2016 20:34 - CONCLUSION: Faint opacity in both lungs especially on the right. Pneumonitis versus early congestion should be considered. Mild cardiomegaly Temo Burrows MD Objective Remarks GENERAL: Well-nourished, well-developed pleasant obese female patient in [facility]. SKIN: Warm and dry. No rash. HEENT: Normocephalic. Atraumatic. Pupils equal and round. No scleral icterus. No injection or drainage. Mucous membranes pink and moist. NECK: Supple. Trachea midline. CARDIOVASCULAR: Regular rate and rhythm. S1, S2 noted. No murmur appreciated. RESPIRATORY: No accessory muscle use. Lungs clear to auscultation today. Breath sounds equal bilaterally. GASTROINTESTINAL: Abdomen soft, non-tender, nondistended. Normoactive bowel sounds x4. MUSCULOSKELETAL: No obvious deformities. Extremities without clubbing, cyanosis , or edema. NEUROLOGICAL: Awake and alert. No obvious cranial nerve deficits. Motor grossly within normal limits. Normal speech. PSYCHIATRIC: Appropriate mood and affect; insight and judgment normal. Medications and IVs Current Medications Medications (Trade) Dose Ordered Sig/Yovana Route Start Time Stop Time Status Last Admin (NS Flush) 2 ml UNSCH PRN FLUSH 06/23/16 00:30 (NS Flush) 2 ml BID FLUSH 06/23/16 09:00 06/24/16 07:47 (Narcan Inj) 0.4 mg UNSCH PRN IV 06/23/16 00:30 (Tylenol) 650 mg Q4H PRN PO 06/23/16 05:00 06/23/16 16:00 (Bumetanide) 1 mg DAILY PO 06/23/16 09:00 06/24/16 07:48 (Folate) 1 mg DAILY PO 06/23/16 09:00 06/24/16 07:48 (Neurontin) 300 mg BID PO 06/23/16 09:00 06/24/16 07:48 (Plaquenil) 200 mg BID PO 06/23/16 09:00 06/24/16 07:49 (Synthroid) 25 mcg DAILY@06 PO 06/23/16 06:00 06/24/16 06:19 (Lopressor) 50 mg BID PO 06/23/16 09:00 06/24/16 07:48 (Protonix) 20 mg DAILY PO 06/23/16 09:00 06/24/16 07:49 (Zoloft) 100 mg HS PO 06/23/16 21:00 06/23/16 23:09 Warfarin Sodium 10 mg 10 mg DAILY@16 PO 06/23/16 16:00 06/23/16 16:00 (Rocephin Inj/NS Inj) 100 ml @ 200 mls/hr Q24H IV 06/23/16 11:00 06/23/16 10:47 (Norvasc) 5 mg DAILY PO 06/24/16 09:30 06/24/16 09:47 (Robitussin Ac 200-20 Mg/10 ml Liq) 10 ml Q4H PRN PO 06/24/16 14:00 UNV Guaifenesin/ Codeine Phosphate 10 ml 10 ml ONCE ONCE PO 06/24/16 10:15 06/24/16 10:16 UNV (NS 1000 ml Inj) 1,000 ml @ 999 mls/hr BOLUS ONCE IV 06/24/16 10:15 06/24/16 11:15 UNV Urinary Catheter: No Vascular Central Line Catheter: No A/P Problem List: (1) Rapid palpitations ICD Code: R00.2 Status: Acute (2) Pneumonitis ICD Code: J18.9 Status: Acute (3) HTN (hypertension) ICD Code: I10 Status: Acute (4) CHF (congestive heart failure) ICD Code: I50.9 Status: Acute Assessment and Plan 66 y/o female with a history of afib, RA, chf, asthma and hypothyroidism presented with: Rapid palpitations, suspected Atrial fibrillation with RVR. No telemetry strips available from [facility] however did catch 2 brief episodes of afib on telemetry -ACS ruled out with negative serial cardiac enzymes x3 and EKG without acute ST changes, reviewed by me. -S/p Nitropaste given in ED -Monitor on telemetry -Consult cardiology, seen by Dr. Kaur, recommends to continue metoprolol, plan for outpatient 3 week event monitor -Continue home Coumadin Pneumonitis, cough and congestion > 3 weeks. CXR images reviewed by me, shows bilateral opacity in lung bases, suggestive of pneumonitis. -Given Levaquin, however will continue with IV Rocephin for now -Robitussin w/codeine prn cough -Plan to d/c on Ceftin x1week HTN, chronic, increased upon arrival -Monitor vitals -Reorder home medications metoprolol -Cardiology started her on Norvasc 5mg daily CHF, chronic, patient does not know EF -Continued home medications Bumex -Monitor for fluid overload DVT: On Coumadin Discussed with Dr. Ware. Discharge Planning Discharge patient to home Condition on discharge: Improved Heart Healthy Diet as tolerated Ad Jessi activity Rx written: Robitussin w/Codeine prn, Norvasc 5mg daily, Metoprolol 50mg bid, Ceftin 500mg po bid x7days Follow-up with primary care physician Dr. Cleary and cardiology Dr. Kaur Outpatient event monitor Problem Qualifiers (1) HTN (hypertension): Qualified Code: I10 - Essential hypertension Zuleyma Roa PA-C Jun 24, 2016 10:22 am
[2016-06-24] MEDS ORDERED: CEFU1TAB20 PO (10:25)
[2016-06-24] MEDS ORDERED: AMLO5 PO (10:25)
[2016-06-24] MEDS ORDERED: METO50TA PO (10:25)
--- NOTE | 2016-06-24 10:25 | HHI.DCPOC ---
Discharge Care Plan Diagnosis: (1) Paroxysmal atrial fibrillation (2) HTN (hypertension) (3) Pneumonitis Your Health Problems Are: Cough Goals to Promote Your Health * To prevent worsening of your condition and complications * To maintain your health at the optimal level Directions to Meet Your Goals Take your medications as prescribed Follow your dietary instruction Follow activity as directed Keep your appointments as scheduled Take your immunizations and boosters as scheduled If your symptoms worsen call your PCP, if no PCP go to Urgent Care Center or Emergency Room Smoking is Dangerous to Your Health. Avoid second hand smoke Call the 24-hour hour crisis hotline for domestic abuse at Zuleyma Roa PA-C Jun 24, 2016 10:25 am
[2016-06-24] MEDS: cefTRIAXone INJ 1,000 MG in SODIUM CHLORIDE 0.9% INJ 100 ML IV SCH (10:38)
[2016-06-24] MEDS ORDERED: SODIUM CHLOR 0.9% 1000 ML INJ 1,000 ML IV ONE (11:00)
[2016-06-24 11:13] VITALS: BP 123/63; PULSE 66; RESP 16; TEMP 98.1; O2SAT 94
[2016-06-24] MEDS ORDERED: GUAI100S5 PO (11:31)
[2016-06-24] MEDS ORDERED: guaiFENesin/CODEINE SYRUP 200 MG/20 MG/10 ML CUP PO PRN (14:00)
--- NOTE | 2016-06-24 23:20 | EKG ---
Date Performed: 06/23/2016 Time Performed: 18:29:27 PTAGE: 66 years EKG: Sinus rhythm POSSIBLE ANTERIOR MYOCARDIAL INFARCTION BORDERLINE ECG PREVIOUS TRACING : 06/23/2016 12.41 DOCTOR: aMx Butt Interpretating Date/Time 06/24/2016 23:19:02
--- NOTE | 2016-06-24 23:37 | EKG ---
Date Performed: 06/23/2016 Time Performed: 12:41:03 PTAGE: 66 years EKG: SINUS BRADYCARDIA POSSIBLE ANTERIOR MYOCARDIAL INFARCTION BORDERLINE ECG PREVIOUS TRACING : 06/23/2016 03.01 DOCTOR: Max Butt Interpretating Date/Time 06/24/2016 23:33:30
== END 2016-06-24 14:38 | disposition home or self-care (01) ==
LOC: NEPC 20:14 → NEDA 06-23 00:48 → NEDH 06-23 04:48 → NEPHCDU 06-23 12:23
PROVIDERS: ADMIT Hospitalist; ATTEND Hospitalist
DX: R00.2 Palpitations (principal); R60.0 Localized edema; I48.0 Paroxysmal atrial fibrillation; J44.0 Chronic obstructive pulmonary disease with (acute) lower respiratory infection; J45.909 Unspecified asthma, uncomplicated; I11.0 Hypertensive heart disease with heart failure; I50.9 Heart failure, unspecified; K21.9 Gastro-esophageal reflux disease without esophagitis; M79.7 Fibromyalgia; M06.9 Rheumatoid arthritis, unspecified; R42 Dizziness and giddiness; Z85.828 Personal history of other malignant neoplasm of skin; Z87.891 Personal history of nicotine dependence; Z82.49 Family history of ischemic heart disease and other diseases of the circulatory system; Z79.01 Long term (current) use of anticoagulants; Z86.718 Personal history of other venous thrombosis and embolism; Z96.653 Presence of artificial knee joint, bilateral
CPT/HCPCS: 71010; 80048; 82550; 82552; 83735; 83880; 84484; 85025; 85610; 85730; 93005; 94640; 94664; 97162; 99285; G0378; G8987; G8988; J0696; J1650; J7030

== ENCOUNTER 2017-07-16 11:29 | Emergency (ER) | payer MEDICARE ==
[~2017-07-16] VITALS: Ht 167.6 cm; Wt 134.0 kg
[~2017-07-16 11:29] MED LIST changes: +AMLO5 PO; +BUME1TAB PO; +CEFU1TAB20 PO; -FOLI1 PO; +FOLI1TAB4 PO; -GABA300C3 PO; +GABA300C5 PO; +GUAI100S5 PO; -HYDR200T42 PO; -LEVO.025 PO; +LEVO25TA4 PO; -META800 PO; -METH2.5 PO; +METH2.5T PO; -METO25 PO; +METO50TA PO; -OMEP20TA39 PO; +OMEP20TA93 PO; -PERC7.5T13 PO; +PLAQ200T PO; -SERT-129 PO; +WARF-22 PO; -WARF1TAB PO; +ZOLO100T PO
[2017-07-16 11:36] VITALS: BP 107/75; PULSE 64; RESP 16; TEMP 97.2; O2SAT 98
[2017-07-16] MEDS ORDERED: diphenhydrAMINE HCL 50 MG/ML VIAL IVP ONE (13:30)
[2017-07-16] MEDS ORDERED: SODIUM CHLORIDE 0.9% FLUSH 10 ML FLUSH IVF PRN (13:30)
[2017-07-16] MEDS ORDERED: PROCHLORPERAZINE INJ 10 MG/2 ML VIAL IVP ONE (13:30)
[2017-07-16] MEDS ORDERED: ACETAMINOPHEN 325 MG TAB PO ONE (13:30)
--- NOTE | 2017-07-16 13:47 | PD ---
HPI Chief Complaint: Headache Time Seen by Provider: 13:20 Travel History International Travel<30 days: No Contact w/Intl Traveler<30days: No Traveled to known affect area: No History of Present Illness HPI 67-year-old female complains of headache with the parieto-occipital location on the right for the past 4 days or so. She experienced a mechanical fall or household in which she fell backwards striking that aspect of the head upon an ottoman. Since then she has had gradual increasing generalized cephalgia the most predominant in that area. No loss of consciousness. The patient reports compliance with Coumadin due to thrombotic disease. No vomiting. No neck stiffness. Pt preferred no medication for pain control. PFSH Past Medical History Arthritis: Yes (RA) Asthma: Yes Atrial Fibrillation: Yes Blood Disorders: No Depression: Yes Heart Rhythm Problems: Yes Cancer: Yes (Hx of Skin cancer) Cardiac Catheterization: Yes Cardiovascular Problems: Yes High Cholesterol: Yes Chest Pain: Yes Congestive Heart Failure: Yes COPD: No Deep Vein Thrombosis: Yes (VENA CAVA BIRD'S NEST FILTER) Endocrine: No Fibromyalgia: Yes Gastrointestinal Disorders: Yes (ESOPHAGUS SPASMS) GERD: Yes Genitourinary: No Hypertension: Yes Musculoskeletal: Yes (Bilateral knee's) Neurologic: No Psychiatric: No Reproductive: No Respiratory: Yes Pneumonia: Yes Sleep Apnea: Yes Thyroid Disease: Yes Past Surgical History Body Medical Devices: Bilateral knee's, Abdominal Veinus filter Cardiac Surgery: Yes (ABLASION) Joint Replacement: Yes (BILATERAL KNEES) Other Surgery: Yes (MEDIA STINASCOPY WITH BIOPSY) Social History Alcohol Use: Yes (OCC) Tobacco Use: No Substance Use: No Allergies-Medications (Allergen,Severity, Reaction): Coded Allergies: infliximab (Unverified Allergy, Intermediate, Itching, 07/16/17) infliximab-dyyb (Unverified Allergy, Intermediate, Itching, 07/16/17) leflunomide (Unverified Allergy, Intermediate, Itching, 07/16/17) pregabalin (Unverified Allergy, Intermediate, Itching, 07/16/17) Reported Meds & Prescriptions Reported Meds & Active Scripts Active Clindamycin (Clindamycin HCl) 150 Mg Cap 450 Mg PO Q8HR 7 Days Cefuroxime (Cefuroxime Axetil) 500 Mg Tab 500 Mg PO BID Norvasc (Amlodipine Besylate) 5 Mg Tab 5 Mg PO DAILY Metoprolol Tartrate 50 Mg Tab 50 Mg PO BID Reported Budesonide Neb 0.25 Mg/2 Ml Neb 0.25 Mg NEB Q12HR NEB Prednisone 5 Mg Tab 5 Mg PO DAILY Mycophenolate (Mycophenolate Mofetil) 500 Mg Tab 500 Mg PO BID Montelukast (Montelukast Sodium) 10 Mg Tab 10 Mg PO HS Valsartan 320 Mg Tab 320 Mg PO DAILY Bumetanide 1 Mg Tab 1 Mg PO DAILY Warfarin 10 Mg Tab 10 Mg PO DAILY Zoloft (Sertraline HCl) 100 Mg Tab 100 Mg PO HS Omeprazole 20 Mg Tab 20 Mg PO DAILY Methotrexate 2.5 Mg Tab 20 Mg PO Q7D Levothyroxine (Levothyroxine Sodium) 25 Mcg Tab 25 Mcg PO DAILY Plaquenil (Hydroxychloroquine Sulfate) 200 Mg Tab 200 Mg PO BID Take with food Gabapentin 300 Mg Cap 300 Mg PO BID Folate (Folic Acid) 1 Mg Tab 1 Mg PO DAILY Review of Systems Except as stated in HPI: all other systems reviewed are Neg General / Constitutional: No: Fever Physical Exam Narrative GENERAL: 67-year-old female pleasant well-nourished well-developed mild distress Vital Signs Date Time Temp Pulse Resp B/P (MAP) Pulse Ox O2 Delivery O2 Flow Rate FiO2 07/16/17 11:36 97.2 64 16 107/75 (86) 98 SKIN: Warm and dry. HEAD: Atraumatic. Normocephalic. No gross deformity about the scalp. EYES: Pupils equal and round. No scleral icterus. No injection or drainage. ENT: No nasal bleeding or discharge. Mucous membranes pink and moist. Tympanic membranes are pink and clear bilaterally with clear visualization of bony landmarks. No evident skull base fracture NECK: Trachea midline. No JVD. Normal range of motion. Supple. CARDIOVASCULAR: Regular rate and rhythm. RESPIRATORY: No accessory muscle use. Clear to auscultation. Breath sounds equal bilaterally. GASTROINTESTINAL: Abdomen soft, non-tender, nondistended. Hepatic and splenic margins not palpable. MUSCULOSKELETAL: Extremities without clubbing, cyanosis, or edema. No obvious deformities. NEUROLOGICAL: Awake and alert. No obvious cranial nerve deficits. Motor grossly within normal limits. Five out of 5 muscle strength in the arms and legs. Normal speech. PSYCHIATRIC: Appropriate mood and affect; insight and judgment normal. Data Data Last Documented VS Vital Signs Date Time Temp Pulse Resp B/P (MAP) Pulse Ox O2 Delivery O2 Flow Rate FiO2 07/16/17 11:36 97.2 64 16 107/75 (86) 98 Orders Orders Complete Blood Count With Diff (07/16/17 13:21) Basic Metabolic Panel (Bmp) (07/16/17 13:21) Prothrombin Time / Inr (Pt) (07/16/17 13:21) Act Partial Throm Time (Ptt) (07/16/17 13:21) Ct Brain W/O Iv Contrast(Rout) (07/16/17 13:21) Iv Access Insert/Monitor (07/16/17 13:21) Sodium Chloride 0.9% Flush (Ns Flush) (07/16/17 13:30) Acetaminophen (Tylenol) (07/16/17 13:30) Prochlorperazine Inj (Compazine Inj) (07/16/17 13:30) Diphenhydramine Inj (Benadryl Inj) (07/16/17 13:30) Ed Discharge Order (07/16/17 14:39) Labs Laboratory Tests Test 07/16/17 13:45 White Blood Count 8.3 TH/MM3 Red Blood Count 4.77 MIL/MM3 Hemoglobin 13.7 GM/DL Hematocrit 41.4 % Mean Corpuscular Volume 86.8 FL Mean Corpuscular Hemoglobin 28.7 PG Mean Corpuscular Hemoglobin Concent 33.1 % Red Cell Distribution Width 13.1 % Platelet Count 209 TH/MM3 Mean Platelet Volume 8.8 FL Neutrophils (%) (Auto) 76.8 % Lymphocytes (%) (Auto) 11.5 % Monocytes (%) (Auto) 6.2 % Eosinophils (%) (Auto) 0.7 % Basophils (%) (Auto) 4.8 % Neutrophils # (Auto) 6.4 TH/MM3 Lymphocytes # (Auto) 0.9 TH/MM3 Monocytes # (Auto) 0.5 TH/MM3 Eosinophils # (Auto) 0.1 TH/MM3 Basophils # (Auto) 0.4 TH/MM3 CBC Comment DIFF FINAL Differential Comment Prothrombin Time 25.4 SEC Prothromb Time International Ratio 2.5 RATIO Activated Partial Thromboplast Time 34.2 SEC Blood Urea Nitrogen 15 MG/DL Creatinine 0.73 MG/DL Random Glucose 98 MG/DL Calcium Level 9.1 MG/DL Sodium Level 139 MEQ/L Potassium Level 4.1 MEQ/L Chloride Level 104 MEQ/L Carbon Dioxide Level 28.1 MEQ/L Anion Gap 7 MEQ/L Estimat Glomerular Filtration Rate 80 ML/MIN MDM Medical Decision Making Medical Screen Exam Complete: Yes Emergency Medical Condition: Yes Medical Record Reviewed: Yes Differential Diagnosis Intracranial hemorrhage, supratherapeutic INR, migraine, contusion Narrative Course CBC & BMP Diagram 07/16/17 13:45 Calcium Level 9.[address] head shows no ICH Trace erythema about the occipital scalp potentially c/w cellulitis, clindamycin script The patient is resting comfortably and feels better, is alert and in no distress. The patients results and examination findings were discussed. The repeat examination is unremarkable and benign. The history, exam, diagnostic testing, and current condition do not suggest any significant pathology to warrant further testing, continued ED treatment, admission, or surgical evaluation at this point. The vital signs have been stable. The patient does not have uncontrollable pain, intractable vomiting, or other significant symptoms. The patient's condition is stable and appropriate for discharge. The patient will pursue further outpatient evaluation with a primary care physician or other designated or consulting physician as indicated in the discharge instructions. The patient expressed understanding and was agreeable with this plan. Diagnosis Primary Impression: Head trauma Qualified Codes: S09.90XA - Unspecified injury of head, initial encounter Additional Impressions: Cephalgia Qualified Codes: R51 - Headache Anticoagulated on Coumadin Cellulitis Qualified Codes: L03.90 - Cellulitis, unspecified Med/Other Pt SpecificInfo: Prescription(s) given Scripts Clindamycin (Clindamycin) 150 Mg Cap 450 MG PO Q8HR for Infection for 7 Days, CAP 0 Refills Prov: Krish Gonzales MD 07/16/17 Disposition: DISCHARGE HOME Condition: Stable Krish Gonzales MD Jul 16, 2017 13:47
[2017-07-16] MEDS ORDERED: MONT10TA4 PO (13:49)
[2017-07-16] MEDS ORDERED: MYCO500T PO (13:49)
[2017-07-16] MEDS ORDERED: PRED5TAB PO (13:49)
[2017-07-16] MEDS ORDERED: VALS1TAB70 PO (13:49)
[2017-07-16] MEDS ORDERED: BUDE0.25 NEB (13:49)
[2017-07-16 13:52] LABS: AUTOMATED NEUTROPHIL # 6.4 TH/MM3 (1.8-7.7); BASOPHIL # 0.4 TH/MM3 (0-0.2); BASOPHIL % 4.8 % (0.0-2.0); EOSINOPHIL # 0.1 TH/MM3 (0-0.4); EOSINOPHIL % 0.7 % (0.0-4.0); HEMATOCRIT 41.4 % (35.0-46.0); HEMOGLOBIN 13.7 GM/DL (11.6-15.3); LYMPH % 11.5 % (9.0-44.0); LYMPHOCYTE # 0.9 TH/MM3 (1.0-4.8); MEAN CELL VOLUME 86.8 FL (80.0-100.0); MEAN CORPUSCULAR HEMOGLOBIN 28.7 PG (27.0-34.0); MEAN CORPUSCULAR HGB CONC 33.1 % (32.0-36.0); MEAN PLATELET VOLUME 8.8 FL (7.0-11.0); MONO % 6.2 % (0.0-8.0); MONOCYTE # 0.5 TH/MM3 (0-0.9); NEUT % 76.8 % (16.0-70.0); PLATELET COUNT 209 TH/MM3 (150-450); RED BLOOD COUNT 4.77 MIL/MM3 (4.00-5.30); RED CELL DISTRIBUTION WIDTH 13.1 % (11.6-17.2); WHITE BLOOD COUNT 8.3 TH/MM3 (4.0-11.0)
[2017-07-16 14:03] LABS: CALCIUM 9.1 MG/DL (8.5-10.1)
[2017-07-16 14:04] LABS: BICARBONATE 28.1 MEQ/L (21.0-32.0)
[2017-07-16 14:05] LABS: INTERNATIONAL NORMALIZED RATIO 2.5 RATIO; PROTHROMBIN TIME - PATIENT 25.4 SEC (9.8-11.6)
[2017-07-16 14:08] LABS: CREATININE 0.73 MG/DL (0.50-1.00)
--- NOTE | 2017-07-16 14:25 | RADRPT ---
EXAM DATE/TIME: 07/16/2017 14:07 [place] COMPARISON: No previous studies available for comparison. INDICATIONS : Fell and hit back of head a few days ago. Headache. RADIATION DOSE: 57.17 CTDIvol (mGy) MEDICAL HISTORY : Myocardial infarction. Congestive heart failure. Skin cancer. SURGICAL HISTORY : Cardiac ablation. Vena cava filter. ENCOUNTER: Initial ACUITY: 4 - 6 days PAIN SCALE: 4/10 LOCATION: Right occipital TECHNIQUE: Multiple contiguous axial images were obtained of the head. Using automated exposure control and adj ustment of the mA and/or kV according to patient size, radiation dose was kept as low as reasonably a chievable to obtain optimal diagnostic quality images. DICOM format image data is available electro nically for review and comparison. FINDINGS: CEREBRUM: The ventricles are normal for age. No evidence of midline shift, mass lesion, hemorrhage or acute in farction. No extra-axial fluid collections are seen. POSTERIOR FOSSA: The cerebellum and brainstem are intact. The 4th ventricle is midline. The cerebellopontine angle i s unremarkable. EXTRACRANIAL: The visualized portion of the orbits is intact. SKULL: The calvaria is intact. No evidence of skull fracture. CONCLUSION: No acute disease. Caleb Aggarwal MD on July 16, 2017 at 14:22 Board Certified Radiologist. This report was verified electronically.
[2017-07-16] MEDS ORDERED: CLIN150C14 PO (14:35)
== END 2017-07-16 14:41 | disposition home or self-care (01) ==
LOC: PHED 11:29 → PHEFT 14:41
DX: S09.90XA Unspecified injury of head, initial encounter (principal); L03.811 Cellulitis of head [any part, except face]; M06.9 Rheumatoid arthritis, unspecified; I11.0 Hypertensive heart disease with heart failure; I50.9 Heart failure, unspecified; M79.7 Fibromyalgia; I48.91 Unspecified atrial fibrillation; J45.909 Unspecified asthma, uncomplicated; W22.03XA Walked into furniture, initial encounter
CPT/HCPCS: 70450; 80048; 85025; 85610; 85730; 96374; 96375